=== PATIENT | male | born 2000 | race Caucasian/White ===

== ENCOUNTER 2023-08-13 15:19 | Emergency (ER) | payer OTHER, SELFPAY ==
[2023-08-13 15:23] VITALS: BP 132/82; PULSE 72; RESP 20; TEMP 36.7; O2SAT 99; BMI 24.3
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
[2023-08-13] MEDS: HYDROCODONE/ACET 5/325 TABLET 1 TAB PO (16:11)
[2023-08-13] MEDS: TET,DIPH,PERTUSS(ACELL),VAC/PF 0.5 ML SYRINGE IM (16:14)
[2023-08-13] MEDS: HYDROCODONE/ACET 5/325 PREPACK 1 BOTTLE MISC (17:14)
[2023-08-13 17:26] VITALS: BP 123/58; PULSE 77; RESP 16; O2SAT 97
--- NOTE | 2023-08-13 17:27 | PC.NURSE ---
Dr. Garcia debrided wound, spoke to [facility] and dressed pt's wound with vaseline guaze, xeroform and non adherant. wrapped in kerlix. pt is able to wiggle his fingers.
== END 2023-08-13 17:30 | disposition home or self-care (01) ==
PROVIDERS: Emergency Provider Emergency Medicine
DX: T23.201A Burn of second degree of right hand, unspecified site, initial encounter (principal); X12.XXXA Contact with other hot fluids, initial encounter; Z23 Encounter for immunization
CPT/HCPCS: 90471; 99283; 90715

== ENCOUNTER → 2023-11-14 16:09 | Outpatient (CLI) | payer OTHER, MEDICAID, SELFPAY ==
[2023-11-14 18:14] LABS: Alanine Aminotransferase 20 IU/L (<50); Albumin 4.4 g/dL (3.5-5.0); Albumin Globulin Ratio 1.6 (1.0-2.8); Alkaline Phosphatase 44 U/L (38-126); Aspartate Aminotransferase 37 IU/L (17-59); BUN Creatinine Ratio 21.4 (6-22); Bilirubin Total 0.8 mg/dL (0.2-1.3); Blood Urea Nitrogen 22 mg/dL (9-20); Calcium 8.8 mg/dL (8.4-10.2); Carbon Dioxide 30 mmol/L (22-32); Chloride 104 mmol/L (98-107); Cholesterol 149 mg/dL (140-199); Estimated Glomerular Filt Rate > 60 mL/min (>60); Globulin 2.7 g/dL (1.7-4.1); Glucose 91 mg/dL (70-100); HDL Cholesterol 65 mg/dL (40-60); HEMOLYSIS 15 (0-50); LDL Cholesterol Calculated 63 mg/dL (<100); Potassium 3.8 mmol/L (3.4-5.1); Sodium 139 mmol/L (137-145); Total Protein 7.1 g/dL (6.3-8.2); Triglycerides 104 mg/dL (35-150)
[2023-11-14 19:46] LABS: HIV 1 & 2 Ab/Ag 4th Gen Combo NEGATIVE (NEGATIVE); Hep C Virus Ab w/Reflex Quant NEGATIVE s/c (NEGATIVE)
== END ==
PROVIDERS: PCP Family Medicine; Referring Provider Family Medicine; Visit Provider Family Medicine
DX: Z00.00 Encounter for general adult medical examination without abnormal findings (principal)
CPT/HCPCS: 36415; 80053; 80061; 86803; 87389